=== PATIENT | female | born 1965 | race Caucasian/White ===

== ENCOUNTER → 2017-12-13 | Outpatient (CLI) | payer OTHER ==
[2014-09-17 09:08] VITALS: BMI 19.4
[~2017-12-13] MED LIST: BIOT800T4 PO; CHOL100052 PO; COD1CAPS40 PO; DOCU240C67 PO; FLUO60TA PO; GINK120C PO; IBUP-56 PO; IBUP800T37 PO; OXYB5TAB86 PO; PER PO; SENN-187 PO; SENN15TA PO; TRET15GE TOP; VITA-200 PO; [UNRECOGNIZED DRUG - OTHER] PO
--- NOTE | 2017-12-13 15:40 | RADIOLOGY IMAGING REPORT ---
[place] [facility] [place] DIEGO DUMONT : [id number] MR: [id number] V: [id number] EXAM DATE: [id number] ORDERING PHYSICIAN: AVANI EVANS TECHNOLOGIST: Alicia Massey PROCEDURE:BILATERAL DIGITAL SCREENING MAMMOGRAM WITH CAD ASSISTED INTERPRETATION & 3D TOMOSYNTHESIS COMPARISON:Prior mammograms 05/02/13. INDICATIONS:SCREENING FINDINGS: There is heterogeneous fibroglandular tissue. Bilateral retropectroal intact saline implants are present as before. No suspicious microcalcification, mass or architectural distortion. No change compared to prior. DIAGNOSTIC CATEGORY 1--NEGATIVE. RECOMMENDATIONS: ROUTINE MAMMOGRAM AND CLINICAL EVALUATION. IMPRESSION: BIRADS 1: Negative. Annual mammographic screening recommended. Dictated by: Garth Walker on 12/13/2017 at 15:18 Transcribed by: CHRIS on 12/13/2017 at 15:29 Approved by: Garth Walker on 12/13/2017 at 15:39 [facility]
== END ==
LOC: MAMO 03:11
PROVIDERS: ATTEND Obstetrics & Gynecology
DX: Z12.31 Encounter for screening mammogram for malignant neoplasm of breast (principal)
CPT/HCPCS: 77063; 77067

== ENCOUNTER 2018-02-27 04:02 | Day surgery (SDC) | payer OTHER ==
[2014-09-17 09:08] VITALS: Ht 177.8 cm; Wt 62.6 kg
[2018-02-27] VITALS (10 sets, daily range): BP systolic 92–141; BP diastolic 61–99
[~2018-02-27] VITALS: Ht 177.8 cm; Wt 62.6 kg
[~2018-02-27 04:02] MED LIST changes: +ASCO-182 PO; +BIOT10004; +CHOL10005 PO; +MINO50TA7 PO; +MULT-42; +TESTERONE; +THYR60TA25 PO
[2018-02-27] MEDS ORDERED: NORMOSOL R SOLN(*) 1000 ML BAG 1,000 ML IV PRN (06:30)
[2018-02-27] MEDS ORDERED: LIDOCAINE/SOD BICARB 8.4% SYR ID ONE (06:30)
[2018-02-27] MEDS ORDERED: PROPOFOL EMUL(*) 10MG/ML 20 ML 20 ML ONE ×2 (07:05→07:37)
--- NOTE | 2018-02-27 08:09 | Short(Outpt) Discharge Summary ---
Discharge Summary Reason for Hosp/Final Diag: (1) Colon cancer screening Status: Chronic Hospital Course & Plan: Colonoscopy with biopsies completed without problems. 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 Departure Discharge to: Home, Self Care Discharge Instructions Home Meds Reported Medications Minocycline Hcl (MINOCYCLINE HCL) 50 Mg Tablet, PO QDAY 02/19/18 Thyroid,Pork (ARMOUR THYROID) 60 Mg Tablet, 60 MG PO QDAY 02/19/18 [Testerone] 2% CREAM..G. No Conflict Check, QPM 02/19/18 Biotin (Biotin) 1,000 Mcg Tab.chew 01/09/18 Cholecalciferol (Vitamin D3) (VITAMIN D3) Unknown Strength Tablet, PO, TAB 01/09/18 Ascorbic Acid (VITAMIN C) Unknown Strength Tablet, PO, TAB 01/09/18 Ascorbic Acid (VITAMIN C) Unknown Strength Tablet, PO, TAB 01/09/18 Multivit-Min/Folic Acid/Biotin (Women Multivit W-Biotin Gummy) Unknown Strength Tab.chew 01/09/18 Fluoxetine Hcl (FLUOXETINE HCL) 60 Mg Tablet, 1 TAB PO QAM for Mild OCD 09/09/14 Diet: Regular Activity: As Tolerated Special Instructions: Your colonoscopy was completed without any problems and your prep was excellent (Good Job!!). I didn't find any polyps, cancers or other problems. You do have a darker pigmentation in your colon that is called melanosis coli. This is benign. It can sometimes represent chronic laxative use and often goes away after laxatives are stopped. I biopsied your colon where the pigmentation is and my office will call you in the next week and let you know what the biopsies show but I am not concerned about the melanosis coli at all. If you do use laxatives regularly, I recommend that you try using fiber, such as citrucel powder, instead. In any case, I recommend that your next colonoscopy be in 10 years. ADALBERTO MICHEL MD Feb 27, 2018 08:09
== END 2018-02-27 10:35 | disposition home or self-care (01) ==
LOC: OR 04:02
PROVIDERS: ATTEND Surgery
DX: Z12.11 Encounter for screening for malignant neoplasm of colon (principal); K63.89 Other specified diseases of intestine
CPT/HCPCS: 00812; 45378; 88305; J2704